=== PATIENT | male | born 1940 | race Caucasian/White ===

== ENCOUNTER 2016-08-26 10:18 | Day surgery (SDC) | payer MEDICARE, OTHER ==
[~2016-08-26] VITALS: Ht 175.3 cm; Wt 97.7 kg
[2016-08-26] MEDS ORDERED: NIFEDIPINE ER60 MG PO (11:29)
[2016-08-26] MEDS ORDERED: COREG25 MG PO (11:29)
[2016-08-26] MEDS ORDERED: FLOMAX0.4 MG PO (11:29)
[2016-08-26] MEDS ORDERED: FUROSEMIDE40 MG PO (11:30)
[2016-08-26] MEDS ORDERED: LIPITOR80 MG PO (11:30)
[2016-08-26] MEDS ORDERED: DESERYL100 MG PO (11:30)
[2016-08-26] MEDS ORDERED: CORDARONE200 MG PO (11:31)
[2016-08-26] MEDS ORDERED: PEPCID AC20 MG PO (11:31)
[2016-08-26 11:32] VITALS: BP 123/64; Ht 175.3 cm; Wt 97.7 kg
[2016-08-26] MEDS ORDERED: ALBUTEROL1.25 MG/3 (11:32)
[2016-08-26 11:46] LABS: BASOPHILS 0.4 % (0-2); EOSINOPHILS 6.5 % (0-7); HEMATOCRIT 40.8 % (42.0-54.0); HEMOGLOBIN 13.4 g/dL (13.5-17.5); IMMATURE GRANULOCYTES 0.2 % (0-5); LYMPHOCYTES 25.5 % (15-50); MCH 31.7 pg (26.0-34.0); MCHC 32.8 g/dL (31.0-37.0); MCV 96.5 fL (80.0-100.0); MONOCYTES 10.1 % (2-11); NEUTROPHILS 57.3 % (40-80); PLATELET COUNT 231 10x3/uL (130-400); RBC 4.23 10x6/uL (4.20-6.10); RDW 13.5 % (11.5-14.5); WBC 9.4 10x3/uL (4.8-10.8)
[2016-08-26 12:01] LABS: ANION GAP 8.8 mmol/L (8-16); CARBON DIOXIDE 32.6 mmol/L (21.0-32.0); CREATININE - SERUM 1.1 mg/dL (0.6-1.3); POTASSIUM - SERUM 3.4 mmol/L (3.5-5.1)
--- NOTE | 2016-08-26 13:42 | NUR ---
ESOPHAGEAL DILATION TO 18 GHANAIAN 1 MINUTE
--- NOTE | 2016-08-26 16:21 | NUR ---
1410- BACK TO ROOM, SITTING UP WITH HOB ELEVATED. 1440- FULL LIQUIDS TOLERATED. 1500-IV D/C'D, PT TOLERATED. CATHETER INTACT 1505- DISCHARGE INSTRUCTIONS COMPLETED, PT VERBALIZES UNDERSTANDING. PAPERWORK SIGNED. 1510- PT DISCHARGED VIA WHEELCHAIR WITH .
--- NOTE | 2016-08-30 17:25 | OP ---
PATIENT NAME: CELE GROSSMAN MEDICAL RECORD: [id number] :41 LOCATION:[facility] ADMISSION DATE: SURGEON: MORRIS FRANCE DO DATE OF OPERATION: 08/26/2016 PROCEDURES: EGD with balloon dilation and biopsies. SCOPE: M[employer]rx video gastroscope. MEDICATIONS: Propofol 200 mg IV per anesthesia. INDICATIONS FOR PROCEDURE: Dysphagia, history of gastric ulcer, and a followup of gastric polyps. ESTIMATED BLOOD LOSS: Minimal. FINDINGS: Informed consent was given. The patient was made comfortable with the above medication. After reaching an adequate level of sedation by slow IV push, the patient was placed on his left side. The endoscope was then advanced under direct visualization through the mouth to the duodenal bulb. The upper and middle thirds of the esophagus appeared normal. In the distal third of the esophagus down to the GE junction, there were a few, very minor esophageal rings. At the conclusion of the procedure, these rings were dilated up to 18 mm using a CRE balloon through the scope. At the GE junction, there was evidence of a small sliding hiatal hernia. This was seen both superiorly and distally upon retroflexion looking at the cardia. The fundus and body of the stomach appeared normal. In the antrum, there was some granularity and erythema consistent with possible gastritis. Random biopsies were taken to rule out H. pylori and to submit for histology. At the pylorus, there was again an area of abundant tissue, which does have a polypoid appearance. With that being said, it does not appear to be adenomatous. Two biopsies were taken of this tissue to submit for histology. The endoscope was advanced beyond the pylorus into the duodenal bulb which appeared normal. Scope could not be advanced into the second portion of the duodenum due to J-shaped anatomy any of the stomach. The scope was then withdrawn back to the distal esophagus where the balloon dilation was performed. Upon entrance and exit of the esophagus, there did appear to be some esophageal candidiasis. The patient has had this before and this has been treated. Scope was withdrawn from the patient. The patient tolerated the procedure well and there were no complications. IMPRESSION: 1. Esophageal candidiasis. 2. Esophageal ring, status post dilation to 18 mm. 3. Small sliding hiatal hernia. 4. Granularity and erythema in the antrum consistent with gastritis with biopsies pending. 5. Polypoid-like tissue at the pylorus. Biopsies taken. PLAN AND RECOMMENDATIONS: 1. Discharge home when recovery parameters are met. 2. Continue current medications. 3. Add fluconazole 100 mg p.o. daily times 21 days with 2 on day 1. 4. GERD and reflux precautions. 5. Follow up in the GI clinic as needed. 6. Follow up on biopsy specimens with further recommendations, pending results. OPERATIVE REPORT [id number] CELE GROSSMAN TRANSINT:[id number] Voice Confirmation ID: [id number] DOCUMENT ID: [id number] MORRIS FRANCE DO at 1725 CC: [id number] DICTATION DATE: 08/26/16 1357 DRAPERY ROD ASSEMBLER: 08/26/16 2259 [facility] 08/26/16 [id number] [place] [address]
== END 2016-08-26 15:10 | disposition home or self-care (01) ==
LOC: D.OPS 10:18
PROVIDERS: Anesthesiology
DX: R13.10 Dysphagia, unspecified (principal); K25.9 Gastric ulcer, unspecified as acute or chronic, without hemorrhage or perforation; K44.9 Diaphragmatic hernia without obstruction or gangrene; B37.81 Candidal esophagitis; J44.9 Chronic obstructive pulmonary disease, unspecified; G47.30 Sleep apnea, unspecified; K21.9 Gastro-esophageal reflux disease without esophagitis; I10 Essential (primary) hypertension; J45.909 Unspecified asthma, uncomplicated; I25.10 Atherosclerotic heart disease of native coronary artery without angina pectoris; Z01.812 Encounter for preprocedural laboratory examination

== ENCOUNTER → 2016-09-27 07:27 | Day surgery (SDC) | payer MEDICARE, OTHER ==
[~2016-09-27] VITALS: Ht 175.3 cm; Wt 96.4 kg
--- NOTE | ~2016-09-27 | OP ---
PATIENT NAME: CELE GROSSMAN MEDICAL RECORD: [id number] :41 [facility] DATE: SURGEON: MORRIS FRANCE DO DATE OF OPERATION: 09/27/2016 PROCEDURE: Colonoscopy. INDICATIONS FOR PROCEDURE: Change in bowel habits, gas and bloating. SCOPE: Olympus video pediatric colonoscope. MEDICATIONS: Propofol 225 mg IV per anesthesia. WITHDRAWAL TIME: 8 minutes. ESTIMATED BLOOD LOSS: None. COMPLICATIONS: None. FINDINGS: Informed consent was given. The patient was made comfortable with the above medication. After reaching an adequate level of sedation by slow IV push, the patient was placed on his left side. A digital rectal examination was performed. On inspection, there was small nonbleeding external hemorrhoids present. With the digital examination, there was a nodule that was prominent within the prostate itself. For this reason, the patient will be referred to a urology for further evaluation. The endoscope was then advanced under direct visualization through the rectum to the terminal ileum. The scope was slowly withdrawn and mucosa was carefully examined. The prep was excellent. There were no polyps identified on this examination. There was moderate diverticulosis of the descending and sigmoid colon with a few diverticula noted as proximal as the transverse colon. Retroflexion was performed in the rectum with internal hemorrhoids, which were small and nonbleeding visualized. Scope was then withdrawn from the patient. The patient tolerated the procedure well and there were no complications. IMPRESSION: 1. Prostate nodule palpated on digital rectal examination. 2. Internal and external hemorrhoids, which were small and not bleeding. 3. Moderate diverticulosis involving the transverse, descending and sigmoid colon. PLAN AND RECOMMENDATIONS: 1. Discharge home when recovery parameters are met. 2. Continue current medications. 3. High fiber diet with consideration of supplementation of 1-2 tablespoons of Metamucil daily. 4. Follow up in GI clinic as needed if symptoms do not resolve or worsen. 5. Recall colonoscopy in 5 years. TRANSINT:[id number] Voice Confirmation ID: [id number] DOCUMENT ID: [id number] OPERATIVE REPORT [id number] CELE GROSSMANMORRIS DO CC: [id number] DICTATION DATE: 09/27/16925 SAND DIGGER: 09/27/16 1808 [facility] [address] [place] [address]
[~2016-09-27 07:27] MED LIST: ALBUTEROL0.63 MG/3 INH; ALDACTONE25 MG PO; CORDARONE200 MG PO; COREG25 MG PO; DESERYL100 MG PO; FLOMAX0.4 MG PO; FUROSEMIDE40 MG PO; LIPITOR80 MG PO; NIFEDIPINE ER60 MG PO; PEPCID AC20 MG PO; TIAZAC/CARDIZE180 MG PO
[2016-09-27 08:05] LABS: BASOPHILS 0.2 % (0-2); EOSINOPHILS 5.4 % (0-7); HEMATOCRIT 41.8 % (42.0-54.0); HEMOGLOBIN 14.1 g/dL (13.5-17.5); IMMATURE GRANULOCYTES 0.4 % (0-5); MCHC 33.7 g/dL (31.0-37.0); MCV 94.8 fL (80.0-100.0); MEAN PLATELET VOLUME 8.8 fL (7.4-10.4); PLATELET COUNT 226 10x3/uL (130-400); RBC 4.41 10x6/uL (4.20-6.10); RDW 13.6 % (11.5-14.5); WBC 9.6 10x3/uL (4.8-10.8)
[2016-09-27 08:21] LABS: ALBUMIN 3.9 g/dL (3.4-5.0); ANION GAP 13.7 mmol/L (8-16); BILIRUBIN - TOTAL 2.12 mg/dL (0.2-1.3); CALCIUM 9.6 mg/dL (8.5-10.1); CARBON DIOXIDE 25.6 mmol/L (21.0-32.0); CREATININE - SERUM 1.1 mg/dL (0.6-1.3); POTASSIUM - SERUM 4.3 mmol/L (3.5-5.1); PROTEIN - SERUM 7.6 g/dL (6.4-8.2)
[2016-09-27 08:41] VITALS: BP 155/82; Ht 175.3 cm; Wt 96.4 kg
--- NOTE | 2016-09-27 09:47 | NUR ---
0935-RECD TO ROOM. AROUSES EASILY. IV PATENT. 0940- VOISE HERE TO REPORT FINDINGS. FULL LIQUIDS SERVED.
--- NOTE | 2016-09-27 10:14 | NUR ---
1005-IV D/C. VOIDED AND DRESSED. 1010-D/C INSTRUCTIONS REVIEWED. 1015-D/C VIA WHEELCHAIR.
== END | disposition home or self-care (01) ==
LOC: D.OPS 07:27
PROVIDERS: Internal Medicine Gastroenterology
DX: N40.2 Nodular prostate without lower urinary tract symptoms (principal); K64.8 Other hemorrhoids; K64.4 Residual hemorrhoidal skin tags; K57.30 Diverticulosis of large intestine without perforation or abscess without bleeding; Z01.812 Encounter for preprocedural laboratory examination

== ENCOUNTER → 2016-10-13 14:05 | Outpatient (CLI) | payer MEDICARE, OTHER ==
[2016-09-27 08:41] VITALS: BMI 31.3
== END | disposition home or self-care (01) ==
LOC: D.LAB 14:05
DX: R97.20 Elevated prostate specific antigen [PSA] (principal)

== ENCOUNTER 2016-11-04 05:43 | Day surgery (SDC) | payer MEDICARE, OTHER ==
[2016-11-03 10:51] LABS: HEMATOCRIT 41.6 % (42.0-54.0); HEMOGLOBIN 14.1 g/dL (13.5-17.5); MCH 32.3 pg (26.0-34.0); MCHC 33.9 g/dL (31.0-37.0); MCV 95.4 fL (80.0-100.0); MEAN PLATELET VOLUME 8.8 fL (7.4-10.4); RBC 4.36 10x6/uL (4.20-6.10); RDW 14.2 % (11.5-14.5); WBC 8.8 10x3/uL (4.8-10.8)
[~2016-11-04] VITALS: Ht 172.7 cm; Wt 96.6 kg
[2016-11-04 06:27] VITALS: BP 124/66; Ht 172.7 cm; Wt 96.6 kg
== END 2016-11-04 12:10 | disposition home or self-care (01) ==
LOC: D.OPS 05:43 → D.PAN 08:00 → D.OPS 08:15 → D.PAN 08:15 → D.OPS 12:10
PROVIDERS: Anesthesiology
DX: C61 Malignant neoplasm of prostate (principal); Z01.812 Encounter for preprocedural laboratory examination

== ENCOUNTER → 2016-11-18 07:13 | Outpatient (CLI) | payer MEDICARE, OTHER ==
[2016-11-04 06:27] VITALS: BMI 32.4
[2016-11-18 11:07] LABS: CREATININE - SERUM 1.1 mg/dL (0.6-1.3)
== END | disposition home or self-care (01) ==
LOC: D.NM 07:13
PROVIDERS: Urology
DX: C61 Malignant neoplasm of prostate (principal)

== ENCOUNTER → 2016-11-22 11:54 | Outpatient (CLI) | payer MEDICARE, OTHER ==
[2016-11-04 06:27] VITALS: BMI 32.4
== END | disposition home or self-care (01) ==
LOC: D.RAD 08:00
DX: C61 Malignant neoplasm of prostate (principal)

== ENCOUNTER 2017-01-05 05:06 | Inpatient (IN) | payer MEDICARE, OTHER ==
[2017-01-04 11:01] LABS: BASOPHILS 0.2 % (0-2); EOSINOPHILS 5.5 % (0-7); HEMATOCRIT 40.6 % (42.0-54.0); HEMOGLOBIN 13.9 g/dL (13.5-17.5); IMMATURE GRANULOCYTES 0.2 % (0-5); LYMPHOCYTES 20.1 % (15-50); MCH 33.3 pg (26.0-34.0); MCHC 34.2 g/dL (31.0-37.0); MCV 97.1 fL (80.0-100.0); MEAN PLATELET VOLUME 8.8 fL (7.4-10.4); MONOCYTES 12.3 % (2-11); NEUTROPHILS 61.7 % (40-80); PLATELET COUNT 204 10x3/uL (130-400); RBC 4.18 10x6/uL (4.20-6.10); RDW 13.6 % (11.5-14.5); WBC 9.3 10x3/uL (4.8-10.8)
[2017-01-04 11:15] LABS: APTT 28.2 SECONDS (22.8-39.4); INR 0.9 (0.85-1.17)
[2017-01-04 11:16] LABS: CALC OSMOLALITY 281 mosm/kg (275-300); CALCIUM 9.1 mg/dL (8.5-10.1); CARBON DIOXIDE 28.9 mmol/L (21.0-32.0); CHLORIDE - SERUM 104 mmol/L (98-107); GLUCOSE 105 mg/dL (74-106); SODIUM 140 mmol/L (136-145); UREA NITROGEN 20 mg/dL (7-18); eGFR NON AFRICAN AMERICAN 77 mL/min (90-120)
[~2017-01-05] VITALS: Ht 172.7 cm; Wt 103.9 kg
[2017-01-05] VITALS (19 sets, daily range): BP systolic 90–129; BP diastolic 54–86; BMI 33.0; BMI 32.7
--- NOTE | ~2017-01-05 | OP ---
PATIENT NAME: CELE GROSSMAN MEDICAL RECORD: [id number] :41 LOCATION:[facility] D.2311 ADMISSION DATE:01/05/17 SURGEON: ANKIT DIEHL MD DATE OF OPERATION: 01/05/2017 This is a cosurgeon case with Dr. Hoffman. I assisted Dr. Hoffman with the open suprapubic prostatectomy. My participation in the operation included the initial incision. Dissection down to the fascia. Dissection through the fascia. Retraction of one side of the rectus abdominis muscles. Some preperitoneal dissection. I identified the left obturator nerve. I dissected out packet of nodes out of the left obturator canal. I identified the left internal iliac vein. I assisted with dissection of the prostate. I cut the sacral prostatic ligaments. I helped to control some bleeding with sutures into the prostate gland as well as some anterior sutures into the fascial vessels. I assisted with mobilizing prostate gland. I assisted with division of the urethra at the inferior aspect of the prostate gland. I assisted with transection of the bladder at the top of the prostate gland. I assisted with mobilizing the seminal vesicles. This was a cosurgeon case, and due to complexity of case, it was necessary for 2 attending surgeons to be present during the operation. My involvement included some hemorrhage control. I also placed 3 of the anastomotic sutures, which were Monocryl sutures. I assisted with the tennis racquet type closure of the bladder. I assisted with tying down the sutures for the anastomosis. I assisted with placement of the drain and then closure of the fascia as well as the skin with metallic clips. TRANSINT:[id number] Voice Confirmation ID: [id number] DOCUMENT ID: [id number] ANKIT DIEHL MD CC: ANKIT HOFFMAN MD [id number] DICTATION DATE: 01/05/17 1230 [employer]AURANT HOURLY TEAM MEMBER: 01/05/17 1343 ADM IN [facility] [address] [place] [address]
[2017-01-05 11:01] LABS: HEMATOCRIT 31.6 % (42.0-54.0); HEMOGLOBIN 10.8 g/dL (13.5-17.5)
[2017-01-05 12:43] LABS: HEMATOCRIT 33.2 % (42.0-54.0); HEMOGLOBIN 11.4 g/dL (13.5-17.5)
--- NOTE | 2017-01-05 13:02 | NUR ---
PT RECEIVED FROM THE RECOVERY ROOM VIA BED. HAD PROSTECTOMY PROCEDURE. EYES CLOSED BUT OPENS UP WHEN ADDRESSED. NO CONFUSION NOTED AT THIS TIME. T 97.3 AXILLARY, BP 94/54(67), HR 57, RR 24. ON 3L O2 VIA NASAL CANULA. DRAIN ON RIGHT SIDE WITH 50ML OF BLOODY DRAINAGE. DENISE IN PLACE WITH RED URINE. PT REPORTS NO PAIN AT THIS TIME. EPIDURAL IN PLACE WITH FENTANYL INFUSING AT 8ML/HR. L-HAND PERIPHERAL IV INFUSING LR AT 75ML/HR. WILL CONTINUE TO MONITOR BP.
--- NOTE | 2017-01-05 13:06 | NUR ---
CONSULTED ANETHESIA REGARDING LOW BLOOD PRESSURE. NO FURTHER ORDERS GIVEN AT THIS TIME. I WILL REPORT ANY SYSTOLIC BP BELOW 100. WILL CONTINUE TO MONITOR.
--- NOTE | 2017-01-05 13:20 | NUR ---
TRANSFERRED PATIENT FROM PACU TO ICU. DURING HAND OFF REPORT PATIENT HAD THREE LOW BP READINGS WITH SYSTOLIC BEING BELOW 90. PATIENT HAS A CONTINUOUS EPIDURAL CATHETER. CONSULTED ANESTHESIA, RERE MARTINEZ CRNA. NO FURTHER ORDERS FROM ANESTHESIA. RERE MARTINEZ CRNA SPOKE WITH GLENDA OTERO RN ICU CHARGE NURSE.
--- NOTE | 2017-01-05 16:31 | NUR ---
PT HAS PUT OUT ABOUT 210ML OF BLOODY URINE. REPORTS NO PAIN AT THIS TIME. WILL CONTINUE TO MONITOR. ICE WATER PROVIDED. NO OTHER NEEDS AT THIS TIME.
--- NOTE | 2017-01-05 17:25 | NUR ---
SAT PT UP TO EAT DINNER. STILL UNABLE TO WIGGLE HIS TOES. WILL CONTINUE TO MONITOR.
--- NOTE | 2017-01-05 18:36 | NUR ---
AND DAUGHTER IN THE ROOM WITH PATIENT.
--- NOTE | 2017-01-05 19:00 | NUR ---
REPORT RECEIVED. SHIFT ASSESSMENT COMPLETED PER FLOW SHEET. PT LAYING IN BED AWAKE AND ALERT. PUPILS 3MM BRISK REACTION. UNABLE TO MOVE BLE DUE TO EPIDURAL FENTANYL, PEDAL PULSES ARE PALP AND EXTREMITIES ARE WARM. RADIAL PULSES PALP. 3 L 02 VIA NC. S1S2 PRESENT. TELEMETRY MONITORING RATE OF 86. BREATH SOUNDS CLEAR BILAT. DENISE CATHETER TO GRAVITY DRAINING SEROSANGUINEOUS URINE. MUCOUS MEMBRANES MOIST. SKIN WARM AND DRY. LOWER ABDOMEN/PUBIC AREA INCISION, DRESSING CDI. KRISTOPHER DRAIN TO RT LOWER ABD, BLOODY DRAINAGE NOTED. SCDS ON. LT HAND PIV, PATENT. SEE FLOW SHEET FOR COMPLETE ASSESSMENT. WILL CONTINUE TO MONITOR.
--- NOTE | 2017-01-05 21:11 | NUR ---
RECEIVED REPORT, WILL ASSUME CARE OF PT, PT-IV-L. WRIST-LR@ 75ML, DENISE- DRAINING, VITALS -BP-118/70, R-18, P-82, T-97.7, -2.5L,PT DENIES ANY NEEDS AT THIS TIME, BED IS LOW, SRX2, CALL LIGHT IN REACH, WILL CONTINUE PLAN OF CARE
--- NOTE | 2017-01-05 21:11 | NUR ---
REPORT GIVEN TO [facility] .
--- NOTE | 2017-01-05 22:31 | NUR ---
PT SLEEPING, NO DISTRESS NOTICED, BED IS LOW, SRX2, CALL LIGHT IN REACH, WILL CONTINUE PLAN OF CARE
--- NOTE | 2017-01-05 23:58 | NUR ---
ASSESSMENT COMPLETE, SEE FLOW SHEET, PT SLEEPING, BED IS LOW, SRX2, SCD ARE ON, CALL LIGHT IN REACH, WILL CONTINUE PLAN OF CARE
[2017-01-06] VITALS (15 sets, daily range): BP systolic 108–143; BP diastolic 42–92; Ht 172.7 cm; Wt 103.9 kg
--- NOTE | 2017-01-06 01:30 | NUR ---
PT RESTING COMFORTABLY AT THIS TIME, NO NEEDS NOTED, WILL CON'T TO MONITOR
--- NOTE | 2017-01-06 03:00 | NUR ---
REASSESSMENT COMPLETE, NO CHANGES NOTED, PT RESTING AT THIS TIME, VSS, CALL LIGHT IN REACH
--- NOTE | 2017-01-06 05:00 | NUR ---
PT AWAKE AT THIS TIME, DENIES ANY NEEDS, WILL CON'T TO MONITOR
--- NOTE | 2017-01-06 07:00 | NUR ---
PT AA&O. RATES PAIN 3/10 AT INCISIONAL SITE ON LOWER ABDOMEN. DRESSING ON ABDOMEN CDI. KRISTOPHER DRAIN ON RIGHT LEFT SIDE HAS SANGUINES DRAINAGE. DENISE SECURED TO RIGHT LEG. DARK VICENTE URINE NOTED. ON TELEMETRY HR 86, BP 134/69 MAP 79, O2 SAT 97% ON 2L O2 VIA NC, TEMP. 97.8. EPIDURAL WITH FENTANYL CONTINUOUS INFUSION. SCD'S IN PLACE. SLIGHT MOVEMENT NOTED ON FEET. L-HAND SALINE LOC, DRESSING CDI, PATENT. NO REDNESS OR TENDERNESS NOTED AT IV SITE. BED LOW POSITION, CALL LIGHT IN REACH. DENIES OTHER NEEDS AT THIS TIME. WILL CONTINUE TO MONITOR.
--- NOTE | 2017-01-06 09:20 | NUR ---
SPOKE WITH DR. HOFFMAN. PT CAN BE TRANSFERRED TO FLOOR DUE TO STABLE STATUS. INCREASE DIET TO FULL LIQUID DIET.
[2017-01-06 09:25] LABS: BASOPHILS 0.1 % (0-2); EOSINOPHILS 0 % (0-7); HEMATOCRIT 27.8 % (42.0-54.0); HEMOGLOBIN 9.8 g/dL (13.5-17.5); IMMATURE GRANULOCYTES 0.4 % (0-5); LYMPHOCYTES 5.8 % (15-50); MCHC 35.3 g/dL (31.0-37.0); MEAN PLATELET VOLUME 8.5 fL (7.4-10.4); MONOCYTES 10.1 % (2-11); NEUTROPHILS 83.6 % (40-80); PLATELET COUNT 172 10x3/uL (130-400); RDW 15.3 % (11.5-14.5)
[2017-01-06 09:40] LABS: MCV 93.6 fL (80.0-100.0); RBC 2.97 10x6/uL (4.20-6.10); WBC 17.6 10x3/uL (4.8-10.8)
--- NOTE | 2017-01-06 11:00 | NUR ---
PT RESTING QUIETLY. NO NEEDS AT THIS TIME.
--- NOTE | 2017-01-06 13:15 | NUR ---
* Is the patient Alert and Oriented? Yes 0 * How many steps to enter\exit or inside your home? 1 0 * PCP Dr. John Young 0 * Pharmacy [facility] in [place] 0 * Preadmission Environment Home with Family 0 * ADLs Independent 0 * Equipment CPAP Nebulizer Oxygen 0 * List name and contact numbers for known caregivers / representatives who currently or will assist patient after discharge: Spouse - Gabriela [phone] 0 * Additional services required to return to the preadmission environment? No 0 * Can the patient safely return to the preadmission environment? Yes 0 * Has this patient been hospitalized within the prior 30 days at any hospital? No Patient Name: CELE GROSSMAN Admission Status: Elective Accout number: [id number] Admission Date: 01-05-2017 : 1940 Admission Diagnosis: Attending: OUSMANE HOFFMAN Current LOS: 1 Planned Disposition: Home Primary Insurance: MEDICARE A & B Discharge Planning Comments: CM met with patient & spouse to assess dc plans/needs. Patient states he lives at home with his , Gabriela. He reports he was independent with all ADL's & AIDL's, works as a nursery school attendant. He reports he uses a home CPAP with O2 & a nebulizer PRN. At dc, he plans to return home with his . He is agreeable to home health services if necessary. CM will follow & assist as needed. Electronics Technology Instructor: Maryam Read
--- NOTE | 2017-01-06 16:06 | NUR ---
ANESTHESIA REMOVED EPIDURAL. PT ABLE TO MOVE HIS TOES. PT WAS WANTING LEGS OFF THE BED. ADVISED HIM TO KEEP THEM IN BED UNTIL HE REGAIN FULL SENSATION AND MOVEMENT IN ORDER TO PREVENT A FALL. PT WAS COOPERATIVE. DR. HOFFMAN ORDERED MORPHINE 4MG Q 4H AND NORCO 5 (1 TO 2 TABS) FOR PAIN PRN. WILL CONTINUE TO MONITOR PT.
--- NOTE | 2017-01-06 17:06 | NUR ---
LEFT HAND PIV REMOVE WITH CATHETER INTACT. PT RATED PAIN 6/10 AT THIS TIME. 2 TABS OF NORCO 5MG GIVEN. WILL CONTINUE TO MONITOR.
--- NOTE | 2017-01-06 19:39 | NUR ---
CALLED REPORT TO MED SURG. CORRECTED MORPHINE ORDER. DR. HOFFMAN ORDERED MORPHINE 4MG Q2H PRN.
--- NOTE | 2017-01-06 20:15 | NUR ---
REC'D PT FROM ICU WITH NO VISIBLE SIGNS OF DISTRESS. PATIENT REQUESTED MEDS WHEN DUE. PATIENT DENIES OTHER NEEDS AT THIS TIME. BED IN LOWEST POSITION AND CALL LIGHT WITHIN REACH. ENCOURAGED THE PATIENT TO CALL IF HE HAS NEEDS.
[2017-01-07] VITALS (13 sets, daily range): BP systolic 120–188; BP diastolic 51–78
--- NOTE | 2017-01-07 00:30 | NUR ---
RECEIVED CARE OF PATIENT.
--- NOTE | 2017-01-07 07:45 | NUR ---
ASSESSMENT PER FLOW SHEET.PT WITHOUT DISTRESS. AT SIDE.CALL LIGHT IN REACH
[2017-01-07 09:52] LABS: BASOPHILS 0.2 % (0-2); EOSINOPHILS 2.1 % (0-7); HEMATOCRIT 24.7 % (42.0-54.0); HEMOGLOBIN 8.5 g/dL (13.5-17.5); IMMATURE GRANULOCYTES 0.4 % (0-5); LYMPHOCYTES 11.1 % (15-50); MCH 32.7 pg (26.0-34.0); MCHC 34.4 g/dL (31.0-37.0); MEAN PLATELET VOLUME 8.5 fL (7.4-10.4); MONOCYTES 12.2 % (2-11); PLATELET COUNT 159 10x3/uL (130-400); RDW 15.2 % (11.5-14.5); WBC 13.3 10x3/uL (4.8-10.8)
--- NOTE | 2017-01-07 13:30 | NUR ---
UNIT 1 OF 2 PRBC'S INITIATED. PT WITHOUT REACTIONS.
--- NOTE | 2017-01-07 15:45 | NUR ---
UNIT 1 OF 2 PRBC'S COMPLETE.PT WITHOUT REACTIONS
--- NOTE | 2017-01-07 16:25 | NUR ---
UNIT 2 OF 2 PRBC'S INITIATED.PT WITHOUT REACTIONS.MONITOR
--- NOTE | 2017-01-07 17:30 | NUR ---
DENISE BAG REPLACED.URINE LEAKING FROM BAG ON FLOOR.QUALITY PROCESS AUDITOR MAINTAINED
--- NOTE | 2017-01-07 19:38 | NUR ---
REMAINS WITHOUT REACTIONS.IV LEFT WRIST DCD TENDER AND SOME SWELLING .IV RESITED TO LEFT FOREARM X2 STICKS USING ASEPTIC TECH,20G.CONT PLAN OF CARE
--- NOTE | 2017-01-07 19:53 | NUR ---
PRBC COMPLETED AT THIS TIME. VS REMAIN STABLE. NO REACTION NOTED. WILL CONTINUE WITH PLAN OF CARE.
--- NOTE | 2017-01-07 20:11 | NUR ---
PRN MEDICATION GIVEN AT THIS TIME. REPOSITIONED IN BED. SCD'S ON, ANIA ALARM ON. SPOUSE IN ROOM. DENIES ANY OTHER NEEDS AT THIS TIME. WILL CONTINUE TO MONITOR.
[2017-01-08] VITALS: BP 128/64
--- NOTE | 2017-01-08 00:19 | NUR ---
PRN NORCO GIVEN AT THIS TIME FOR PAIN 12/26. AT BEDSIDE. WILL CONTINUE TO MONITOR.
--- NOTE | 2017-01-08 03:50 | NUR ---
PRN MORPHINE ADMINISTERED AT THIS TIME FOR PAIN 12/26. PT STATES THAT WHEN HE COUGHS THE PAIN IN HIS ABDOMEN IS WORSE. ENCOURAGED PILLOW SPLINTING. WILL CONTINUE TO MONITOR. CALL LIGHT IN REACH
[2017-01-08 04:00] VITALS: BP 135/60
--- NOTE | 2017-01-08 07:55 | NUR ---
PT AOX4 RESP EVEN AND NONLABORED PT DENIES NEEDS AT THIS TIME IV TO LEFT FOREARM PATENT AND INTACT AT THIS TIME SRX2 BED AT LOWEST SETTING CALL LIGHT WITHIN REACH WILL CONTINUE TO MONITOR
[2017-01-08 08:40] VITALS: BP 151/78
[2017-01-08 10:45] LABS: BASOPHILS 0.2 % (0-2); EOSINOPHILS 4.7 % (0-7); HEMATOCRIT 29.9 % (42.0-54.0); HEMOGLOBIN 10.2 g/dL (13.5-17.5); IMMATURE GRANULOCYTES 0.3 % (0-5); LYMPHOCYTES 13.6 % (15-50); MCHC 34.1 g/dL (31.0-37.0); MCV 93.7 fL (80.0-100.0); MEAN PLATELET VOLUME 8.8 fL (7.4-10.4); MONOCYTES 13.2 % (2-11); PLATELET COUNT 160 10x3/uL (130-400); RBC 3.19 10x6/uL (4.20-6.10); RDW 16.8 % (11.5-14.5); WBC 10.1 10x3/uL (4.8-10.8)
[2017-01-08 12:39] VITALS: BP 142/66
[2017-01-08 16:51] VITALS: BP 151/77
[2017-01-08 19:23] VITALS: BP 153/72
[2017-01-09] VITALS: BP 148/69
--- NOTE | 2017-01-09 02:54 | NUR ---
PT SLEEPING. RESP EASY, UNLABORED. NO DISTRESS NOTED. CONTINUE HOUSE SERVANT'S PLAN OF CARE.
[2017-01-09 04:00] VITALS: BP 141/74
[2017-01-09 10:11] VITALS: BP 135/68
--- NOTE | 2017-01-09 13:00 | NUR ---
DISCHARGE PAPERS AND INSTRUCTIONS GIVEN, QUESTIONS ANSWERED, IV REMOVED TIP INTACT, DC PER WC WITH BELONGINGS
--- NOTE | 2017-01-11 08:36 | OP ---
PATIENT NAME: CELE GROSSMAN MEDICAL RECORD: [id number] :41 LOCATION:[id number] ADMISSION DATE:01/05/17 SURGEON: ANKIT HOFFMAN MD DATE OF OPERATION: 01/05/2017 CO-SURGEONS: 1. Ankit Hoffman M.D. 2. Ankit Akins MD ANESTHESIA: General anesthesia by Reyes Deng CRNA PREOPERATIVE DIAGNOSIS: Prostate cancer, [place] 3+3, in left mid lobe, clinical stage T2a. PSA is 8.77. FINDINGS: Moderate-sized prostate, large obturator lymph nodes. PROCEDURE: Radical retropubic prostatectomy. SPECIMEN: Prostate with seminal vesicles and vasa deferentia. ESTIMATED BLOOD LOSS: 2.2 liters. INTRAOPERATIVE HEMOGLOBIN: 10.3. He had one unit of packed red blood cells transfused in the operating room. CLINICAL HISTORY: This is a 76-year-old male who has a previous history of hypertension and coronary artery disease with prior GA. He was found to have an elevated PSA of 8.77. He had a prostate biopsy performed, and on the left mid lobe of his prostate, was found prostate cancer, [place] 3+3 equals 6 out of 10. He had a metastatic workup performed and it was negative for metastatic disease. He now comes to have a radical retropubic prostatectomy performed. We have typed and screened 2 units of packed red blood cells for him. He also has taken Fleet enema on the evening prior to surgery. HE IS ALLERGIC TO JACKY INHIBITORS, AUGMENTIN, ATACAND, VYTORIN, LISINOPRIL, NITROGLYCERIN, BENICAR, AND FLEXERIL. We gave him clindamycin and gentamicin IV environmental marketer to the OR. The patient is aware of the risks of male stress urinary incontinence postoperatively as well as erectile dysfunction. The risk of blood loss from the surgery was explained to the patient due to the large dorsal venous complex which surrounds the anterior surface of the prostate. He is aware of these issues and he wished to proceed with surgery. We performed a nerve-sparing procedure on this patient. DESCRIPTION OF PROCEDURE: The patient was given induction of general anesthesia in supine position. We then raised the kidney rest on the bed to brace as iliac crest region up. He was then prepped and draped. We prepped him so that the penis was in the surgical field. We then inserted a 16-Anguillan Steward catheter into the bladder and inflated the balloon with 20 cc of sterile water. In the anterior midline, we marked out a 3-inch incision (7.5 cm). This was ran from the symphysis pubis cranially up towards the umbilicus. It did not actually reach the umbilicus. The incision was made using a #15 blade. We then went down through Jonny's fascia and then to the midline of the rectus fascia. We then entered through the transversalis fascia and got into the space of Retzius. With blunt dissection using the fingers, we were able to move the peritoneal surface and bladder surface away from the undersurface of the anterior abdominal wall. We then put in our Bookwalter retractor. Once the retractor ring was OPERATIVE REPORT [id number] CELE GROSSMAN placed, the bladder blade was placed. This has a notch in it to hold the Steward catheter and Steward catheter balloon back and retract the bladder cranially. Moistened lap pads were used to cushion the incisional lau from the sidewall retractor blades. First order of business was to go after the pelvic lymph nodes. The margins of the lymph node retraction are; anteriorly the internal iliac vein; Posteriorly, it is the obturator nerve. Cranially, it is the branching of the common iliac vein into the external and internal iliac veins. Distally, it is the circumflex iliac vein. Within these margins, we found a large lymph node package on each side. This was dissected out using the Joaquínuer sucker. The lymphatic vessels were clipped using large clips and then the lymphatic channels were divided using Metzenbaum scissors. The lymph nodes on each side were sent separately to pathology in formalin. The superficial dorsal venous complex was then tackled. The fat overlying the prostate was removed bluntly using the Vietnamese forceps. We then identified the superficial dorsal veins. These were cauterized extensively for hemostasis. A 2-0 chromic suture was placed in a jgiijx-fa-tichv on the dorsal prostatic surface near the bladder neck to prevent backbleeding from the inferior vesicle arteries. We then took down the puboprostatic ligaments using scissors on the undersurface of the pubic bone. Normally, I would not take this down, but the patient's prostatic apex extended so far down distally that it was hard to visualize the urethra. In the process of taking down the puboprostatic ligaments, we encountered a significant amount of venous bleeding from the dorsal venous complex. This was what accounted for most of the blood loss. We used 2-0 Vicryl sutures in wthrgf-kw-cnneqa across the dorsal venous complex to finally get vascular control. During this time, anesthesia did send hemoglobin off for stat H&H. His preoperative hemoglobin was 13 and the intraoperative hemoglobin was about 10. Since he had 2 units cross matched, we decided to give him one unit. Once the hemostasis was achieved with the jkdrlu-lq-eryqv sutures of Vicryl, we then worked on dissecting the urethra. The endopelvic fascia on either side of the apex of the prostate was incised bluntly using the finger or to get it started with the Bovie. Once this endopelvic fascia was incised, we could access the urethra just distal to the apex of the prostate. Here, we placed an angled clamp into the plane posterior to the urethra and anterior to the rectum. We were able to bluntly dissect off the endopelvic fascia here and get our clamp through. We used a #15 blade to divide the anterior urethra immediately distal to the apex of the prostate. The incision was then carried around to the lateral surface of the urethra. This allowed us to get the Steward catheter in the urethral channel. This was picked up with a hemostat. The Steward catheter was then cut off at the penile meatus and the Steward catheter was then pulled through from the penis into our wound. We used the Steward catheter on the hemostat as a means of retraction of the apex of prostate. We divided the posterior urethra using a #15 blade. The rectourethralis muscle was also divided using a #15 blade. During this procedure, we tried as much as possible to avoid using any cautery near the cavernosal nerves in order to try to preserve his erectile function as much as possible. Using large clips placed in horizontal fashion, we took down the pedicles of the prostate on each side. We placed clips on the patient's side of the pedicle and then just divided with Metzenbaum scissors on the prostatic specimen side. Finally, we ran into the level near the bladder neck. At this point, we incised Denonvilliers fascia. The 2 layers were incised using a #15 blade. We then pulled the fascia down with blunt dissection. This exposed the seminal vesicles to view. We were then able to bluntly dissect the seminal vesicles down to their apex. The apical artery was then clipped and divided. We found the vas deferens on each side and OPERATIVE REPORT [id number] CELE GROSSMAN the patient's side was clipped and then divided on the specimen side. This completely freed these structures. We then turned our attention to the bladder neck. We tried to perform a bladder neck-sparing incision of the bladder neck. The cautery was used anteriorly to go through into the bladder. We then used a Kitner to dissect the bladder detrusor muscle off the surface of the prostate. The patient does have somewhat of a median lobe. We dissected the bladder neck anteriorly and laterally. We then deflated the Steward catheter balloon, and using the Steward catheter tip as a sort of sling to hold the prostate by the prostatic urethra, we were able to look for the patient's ureteral orifices bilaterally. These were found to be at some distance from my dissection and they were intact. We then completed the dissection of the posterior bladder wall. The specimen was then removed and sent to pathology in formalin. At this point, we used 4-0 Vicryl and everted the bladder mucosa to cover the cut surface of the detrusor muscle. This was reported by America Hernandez to reduce bladder neck contracture rates. We did do a tennis racquet reduction of the bladder neck by narrowing the posterior wall of the bladder opening. We did full-thickness bites using 2-0 Vicryl and ran it until the bladder neck opening was about 1 cm in diameter. At this point, we placed in our anastomotic sutures. These are 4-0 Monocryl. Five such sutures were placed. They were placed in 12 o'clock, 3 o'clock, 5 o'clock, 7 o'clock, and 10 o'clock positions. They were placed outside in into the urethral stump and then inside out at the corresponding locations in the bladder neck. We used a 22-Anguillan sound to identify the urethra. Once the 5 anastomotic sutures were placed, we then put Surgicel into the pelvic wound to stop any venous bleeding. The kidney rest was then brought down to flatten out the patient's pelvis. A new 22-Anguillan 2-way Steward catheter was placed into the bladder. The balloon was inflated with 20 cc of sterile water. The bladder was gently brought down to the level of the urethra with gentle traction on the Steward catheter. The 5 anastomotic sutures were then tied down. At the end of the anastomosis, we did irrigate the 22-Anguillan Steward catheter. We did not see any leakage from our anastomosis of the bladder to the urethra. The catheter did drain freely. This was put to bag drainage. We placed a 10-mm Robibn-Magaña drain through an exit site in the left lower quadrant of the abdomen. This is adjacent to but not overlying our bladder anastomosis. It was put to bulb suction. The rectus fascia was closed using running #0 looped PDS. We infiltrated the wound edges with 0.25% Marcaine without epinephrine. Skin was closed with britney. A drain suture of 3-0 nylon was placed to hold our Robbin-Magaña drain. A dressing was applied over the incision and then the patient was awakened and brought to the recovery room. We will put him into the intensive care unit for monitoring. TRANSINT:[id number] Voice Confirmation ID: [id number] DOCUMENT ID: [id number] ANKIT HOFFMAN MD at 0836 CC: [id number] DICTATION DATE: 01/05/17 1221 PLANT SCIENCE PROFESSOR: 01/05/17 1313 DIS IN 01/09/17 [facility] [address] [place] [address]
== END 2017-01-09 13:14 | disposition home or self-care (01) | DRG 708 ==
LOC: D.ICU 05:06 → D.SDCHOLD 05:06 → D.ICU 12:42 → D.MS 01-06 20:10
PROVIDERS: Anesthesiology; ADMIT Urology
PROC: 0VT00ZZ Resection of Prostate, Open Approach (ICD-10-PCS; 2017-01-05)
PROC: 07BC0ZZ Excision of Pelvis Lymphatic, Open Approach (ICD-10-PCS; 2017-01-05)
PROC: 0VB00ZZ Excision of Prostate, Open Approach (ICD-10-PCS; principal; 2017-01-05 07:30)
DX: C61 Malignant neoplasm of prostate (principal); I25.10 Atherosclerotic heart disease of native coronary artery without angina pectoris; I10 Essential (primary) hypertension; N32.89 Other specified disorders of bladder; K21.9 Gastro-esophageal reflux disease without esophagitis

== ENCOUNTER 2017-01-23 17:41 | Emergency (ER) | payer MEDICARE, OTHER ==
[2017-01-06 10:42] VITALS: BMI 34.8
[2017-01-23 18:21] LABS: APPEARANCE CLEAR (CLEAR); BILIRUBIN NEGATIVE (NEGATIVE); COLOR YELLOW (YELLOW); GLUCOSE NEGATIVE (NEGATIVE); KETONE NEGATIVE (NEGATIVE); NITRITE NEGATIVE (NEGATIVE); PROTEIN NEGATIVE (NEGATIVE); SPECIFIC GRAVITY 1.005 (1.005-1.020); UROBILINOGEN NORMAL (NORMAL)
[2017-01-23 18:24] LABS: BACTERIA FEW /hpf (NONE SEEN); EPITHELIAL CELLS RARE /hpf (0-5)
[2017-01-23 18:40] LABS: BASOPHILS 0.1 % (0-2); EOSINOPHILS 0.4 % (0-7); HEMATOCRIT 31.4 % (42.0-54.0); HEMOGLOBIN 10.3 g/dL (13.5-17.5); IMMATURE GRANULOCYTES 0.5 % (0-5); LYMPHOCYTES 6.1 % (15-50); MCH 30.9 pg (26.0-34.0); MCHC 32.8 g/dL (31.0-37.0); MCV 94.3 fL (80.0-100.0); MEAN PLATELET VOLUME 8.1 fL (7.4-10.4); MONOCYTES 10.9 % (2-11); PLATELET COUNT 367 10x3/uL (130-400); RBC 3.33 10x6/uL (4.20-6.10); RDW 15.5 % (11.5-14.5); WBC 15.9 10x3/uL (4.8-10.8)
== END 2017-01-23 19:52 | disposition home or self-care (01) ==
LOC: D.ER 17:41
PROVIDERS: Nurse Practitioner Acute Care
DX: T81.4XXA Infection following a procedure, initial encounter (principal); I10 Essential (primary) hypertension; Z85.46 Personal history of malignant neoplasm of prostate

== ENCOUNTER → 2017-01-26 12:52 | Outpatient (CLI) | payer MEDICARE, OTHER ==
[2017-01-06 10:42] VITALS: BMI 34.8
[~2017-01-26 12:52] MED LIST changes: +DIFLUCAN100 MG PO
== END | disposition home or self-care (01) ==
LOC: D.LAB 12:52
DX: C61 Malignant neoplasm of prostate (principal)

== ENCOUNTER → 2017-02-03 12:22 | Outpatient (CLI) | payer MEDICARE, OTHER ==
[2017-01-06 10:42] VITALS: BMI 34.8
== END | disposition home or self-care (01) ==
LOC: D.US 12:22
DX: I82.402 Acute embolism and thrombosis of unspecified deep veins of left lower extremity (principal); M79.662 Pain in left lower leg

== ENCOUNTER 2017-03-07 08:46 | Day surgery (SDC) | payer MEDICARE, OTHER ==
[~2017-03-07] VITALS: Ht 172.7 cm; Wt 90.5 kg
[~2017-03-07 08:46] MED LIST changes: -DIFLUCAN100 MG PO
[2017-03-07 10:50] VITALS: BP 127/64; Ht 172.7 cm; Wt 90.5 kg
--- NOTE | 2017-03-07 11:17 | NUR ---
1115-DILATE ESOPHAGUS WITH 16-17-18 CRE BALLOON.
[2017-03-07 11:31] LABS: HEMATOCRIT 35.9 % (42.0-54.0); HEMOGLOBIN 11.4 g/dL (13.5-17.5); MCH 30.2 pg (26.0-34.0); MCHC 31.8 g/dL (31.0-37.0); MEAN PLATELET VOLUME 8.8 fL (7.4-10.4); RBC 3.78 10x6/uL (4.20-6.10); RDW 17.2 % (11.5-14.5); WBC 8.1 10x3/uL (4.8-10.8)
--- NOTE | 2017-03-07 11:40 | NUR ---
PT REC'D TO ROOM VIA STRETCHER. AWAKE, ALERT, ORIENTED.
[2017-03-07] MEDS ORDERED: DIFLUCAN100 MG PO (11:45)
--- NOTE | 2017-03-07 11:55 | NUR ---
FULL LIQUID DIET PROVIDED.
--- NOTE | 2017-03-07 12:16 | NUR ---
IV D/C'D CATH INTACT.
--- NOTE | 2017-03-07 12:32 | NUR ---
D/C INSTRUCTIONS EXPLAINED TO PT. VOICED UNDERSTANDING. COPIES OF ALL GIVEN, WELL WRITTEN RX FOR FLUCONAZOLE PER DR. FRANCE. D/C'D HOME VIA W/C TO PRIVATE CAR.
--- NOTE | 2017-03-07 14:47 | OP ---
PATIENT NAME: CELE GROSSMAN MEDICAL RECORD: [id number] :41 LOCATION:[facility] ADMISSION DATE: SURGEON: MORRIS FRANCE DO DATE OF OPERATION: 03/07/2017 PROCEDURE: EGD with balloon dilation and biopsies. INDICATIONS FOR PROCEDURE: Dysphagia and heartburn. SCOPE: Olympus video gastroscope. MEDICATIONS: Propofol 150 mg IV per anesthesia. ESTIMATED BLOOD LOSS: Minimal. COMPLICATIONS: None. FINDINGS: Informed consent was given. The patient was made comfortable with the above medication. After reaching an adequate level of sedation by slow IV push, the patient was placed on his left side. The endoscope was then advanced under direct visualization through the mouth to the second portion of the duodenum. Throughout the entire esophagus, there was evidence of moderate Sera esophagitis. At the GE junction, there was a small ring consistent with a Schatzki ring. It measured approximately 15 mm in diameter. At the end of the procedure, a 16-18 mm CRE balloon was placed through the working channel and used to dilate the ring up to 18 mm in maximum diameter successfully. The endoscope was advanced beyond the GE junction into the stomach and retroflexed to view the cardia, where a very small sliding hiatal hernia was present. There was no obvious esophagitis or ulcerations associated with this hernia. The entire mucosa of the stomach appeared normal. The previously visualized polypoid formation at the pylorus was not present on today's examination. The endoscope was advanced beyond the pylorus into the duodenum where the bulb appeared normal. In the second portion of the duodenum, there was a white plaque-like tissue consistent with lymphangiectasia. A single cold forceps biopsy was taken of this site for confirmation of the diagnosis. The endoscope was then withdrawn from the patient. The patient tolerated the procedure well and there were no complications. IMPRESSION: 1. Moderate esophageal candidiasis of the entire esophagus. 2. A single Schatzki ring located at the GE junction, status post dilation with a CRE balloon to 18 mm. 3. Small sliding hiatal hernia. 4. 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 PLAN AND RECOMMENDATIONS: 1. Discharge home when recovery parameters are met. 2. Follow up biopsy specimen results. 3. Okay to use an H2 juan or obgc-adh-vjfiaza PPI at 20 mg equivalent daily. 4. Antacid therapy as needed. 5. We will treat candidiasis with fluconazole 100 mg daily times 21 days. 6. If the patient's oropharyngeal dysphagia does not improve with treatment of candidiasis, consider modified barium swallow and/or a manometry study. 7. Repeat EGD as needed for esophageal dysphagia. OPERATIVE REPORT [id number] CELE GROSSMAN TRANSINT:[id number] Voice Confirmation ID: [id number] DOCUMENT ID: [id number] MORRIS FRANCE DO at 1447 CC: [id number] DICTATION DATE: 03/07/17 1131 QUARRY BOSS: 03/07/17 1359 [facility] 03/07/17 [facility] [address] [place] [address]
== END 2017-03-07 12:44 | disposition home or self-care (01) ==
LOC: D.OPS 08:46 → D.NM 08:46 → D.OPS 12:44
PROVIDERS: Anesthesiology
DX: R13.10 Dysphagia, unspecified (principal); R12 Heartburn; K44.9 Diaphragmatic hernia without obstruction or gangrene; K22.2 Esophageal obstruction; B37.81 Candidal esophagitis; Z01.812 Encounter for preprocedural laboratory examination; I10 Essential (primary) hypertension; G47.30 Sleep apnea, unspecified; J45.909 Unspecified asthma, uncomplicated

== ENCOUNTER → 2017-06-09 12:00 | Outpatient (CLI) | payer MEDICARE, OTHER ==
[2017-03-07 10:50] VITALS: BMI 30.3
[~2017-06-09 12:00] MED LIST changes: +DIFLUCAN100 MG PO
== END | disposition home or self-care (01) ==
LOC: D.RAD 12:00
DX: R13.10 Dysphagia, unspecified (principal)

== ENCOUNTER → 2017-06-14 10:43 | Outpatient (CLI) | payer MEDICARE, OTHER ==
[2017-03-07 10:50] VITALS: BMI 30.3
== END | disposition home or self-care (01) ==
LOC: D.LAB 10:43
DX: Z85.46 Personal history of malignant neoplasm of prostate (principal)